=== PATIENT | male | born 1965 | race Caucasian/White ===

== ENCOUNTER 2016-04-13 06:09 | Day surgery (SDC) | payer OTHER ==
[2016-04-13] MEDS ORDERED: ceFAZolin 2 GM/50 ML 0 ML IV ONE (06:30)
[2016-04-13] MEDS ORDERED: LACTATED RINGERS 1,000 ML IV ONE ×4 (07:00→10:48)
[2016-04-13] MEDS ORDERED: BUPIVACAINE 0.5% PF 30 ML VIAL SUBQ ONE ×3 (07:43→10:26)
[2016-04-13] MEDS ORDERED: VANCOMYCIN 1 GM VIAL ONE (07:54)
[2016-04-13] MEDS ORDERED: SODIUM CHLORIDE 0.9% 250 ML IV ONE (07:54)
[2016-04-13] MEDS ORDERED: SUCCINYLCHOLINE 200 MG/10 ML VIAL IVP ONE (09:00)
[2016-04-13] MEDS ORDERED: DEXAMETHASONE 4 MG/ML VIAL IVP ONE (09:00)
[2016-04-13] MEDS ORDERED: KETOROLAC 30 MG/ML VIAL IVP ONE (09:00)
[2016-04-13] MEDS ORDERED: PROPOFOL 200 MG/20 ML VIAL IVP ONE (09:00)
[2016-04-13] MEDS ORDERED: NEOSTIGMINE 1 MG/1 ML 10 ML MDV IVP ONE (09:00)
[2016-04-13] MEDS ORDERED: GLYCOPYRROLATE 1 MG/5 ML VIAL IVP ONE (09:00)
[2016-04-13] MEDS ORDERED: LIDOCAINE-MPF 2% 5 ML VIAL IM ONE (09:00)
[2016-04-13] MEDS ORDERED: MIDAZOLAM 2 MG/2 ML VIAL IVP ONE (09:00)
[2016-04-13] MEDS ORDERED: ACETAMINOPHEN 1,000 MG/100 ML VIAL IV ONE (09:00)
[2016-04-13] MEDS ORDERED: ePHEDrine 50 MG/ML AMP IVP ONE (09:00)
[2016-04-13] MEDS ORDERED: ONDANSETRON 4 MG/2 ML VIAL IVP ONE (09:00)
[2016-04-13] MEDS ORDERED: fentaNYL 250 MCG/5 ML VIAL IVP ONE (09:00)
== END 2016-04-13 06:10 | disposition home or self-care (01) ==
PROC: 0YUA4JZ Supplement Bilateral Inguinal Region with Synthetic Substitute, Percutaneous Endoscopic Approach (ICD-10-PCS; principal; 2016-04-13 07:30)
DX: K40.20 Bilateral inguinal hernia, without obstruction or gangrene, not specified as recurrent (principal); Z80.7 Family history of other malignant neoplasms of lymphoid, hematopoietic and related tissues; E66.9 Obesity, unspecified; Z87.891 Personal history of nicotine dependence; Z68.33 Body mass index [BMI] 33.0-33.9, adult
CPT/HCPCS: 49650; C1781; J3370; J7120

== ENCOUNTER 2018-06-06 14:02 | Outpatient (CLI) | payer OTHER | END 2018-06-06 14:03 | disposition home or self-care (01) | LOC: SC 14:02 | PROVIDERS: ATTEND Internal Medicine Pulmonary Disease | DX: G47.10 Hypersomnia, unspecified (principal); R06.81 Apnea, not elsewhere classified; G47.8 Other sleep disorders; R41.89 Other symptoms and signs involving cognitive functions and awareness; R06.83 Snoring | CPT/HCPCS: 99203; 99212 ==

== ENCOUNTER 2018-06-08 20:35 | Outpatient (CLI) | payer OTHER | END 2018-06-08 20:36 | disposition home or self-care (01) | LOC: SC 20:35 | PROVIDERS: ATTEND Internal Medicine Pulmonary Disease | DX: R06.83 Snoring (principal) | CPT/HCPCS: 95810 ==

== ENCOUNTER 2018-07-11 13:43 | Outpatient (CLI) | payer OTHER | END 2018-07-11 13:44 | disposition home or self-care (01) | LOC: SC 13:43 | PROVIDERS: ATTEND Nurse Practitioner Family | DX: R06.83 Snoring (principal) | CPT/HCPCS: 99212; 99214 ==

== ENCOUNTER 2021-05-12 07:44 | Outpatient (CLI) | payer OTHER ==
--- NOTE | 2021-05-12 09:20 | MRI Report ---
PROCEDURE: Hip LT W/O INDICATIONS: PAIN IN LEFT HIP TECHNIQUE: Noncontrast coronal T1 spin echo and STIR through the bony pelvis. Coronal and axial T2 fast spin ec ho with fat saturation, sagittal T1 spin echo, and oblique axial T2 fast spin echo with fat saturatio n through the hip. COMPARISON: None. Findings: MUSCULATURE: No edema in the musculature of the imaged hip region. LABRUM: Maintained without evidence of tear or paralabral cyst. HAMSTRING ATTACHMENT: Minimal T2 hyperintense signal within the conjoined tendon at the ischial attac hment. BONES/JOINTS: No fractures or dislocations are identified. No evidence of irregularity or fragmentat ion of the femoral heads to suggest avascular necrosis. The visualized portion of the ligamentum chantel s is intact. The alpha angle measures less than 55 degrees. The bone marrow signal intensity is normal for the patient's age. No substantial joint effusion. PELVIC STRUCTURES: The lower pelvic intraperitoneal structures are unremarkable. Impression: 1.Minimal hamstring tendinopathy with ischial attachment. Reviewed by: Nirav Faulkner MD on 05/12/2021 9:19 AM PST Approved by: Nirav Faulkner MD on 05/12/2021 9:19 AM PST Station ID: [id number]
== END 2021-05-12 07:45 | disposition home or self-care (01) ==
LOC: DI 07:44
PROVIDERS: ATTEND Student in an Organized Health Care Education/Training Program
DX: M67.952 Unspecified disorder of synovium and tendon, left thigh (principal)